=== PATIENT | female | born 1965 | race Caucasian/White ===

== ENCOUNTER 2020-12-10 01:42 | Observation (INO) | payer SELFPAY ==
[2020-12-10] VITALS (13 sets, daily range): BP systolic 85–129; BP diastolic 53–72
[~2020-12-10] VITALS: Ht 167.7 cm; Wt 57.5 kg
[~2020-12-10 01:42] MED LIST: ALPR1TAB PO; HYDR-2854 PO; MORP30CA15 PO; NF-ESOM40C PO; NITR-65 PO; PENT100C5 PO
[2020-12-10] MEDS ORDERED: LACTATED RINGERS 1,000 ML IV ONE (02:00)
[2020-12-10] MEDS ORDERED: ASPIRIN 81 MG CHEW (CHILDREN'S ASA) PO ONE (02:00)
[2020-12-10] MEDS ORDERED: LORazepam INJ 2 MG/ML (ATIVAN) VIAL IVP ONE (02:00)
[2020-12-10 02:04] LABS: BASOPHILS % (AUTO) 0 % (0-10); EOSINOPHILS % (AUTO) 0 % (0-10); HEMATOCRIT 38 % (35-52); HEMOGLOBIN 12.8 g/dL (11.5-16.0); LYMPHOCYTES # (AUTO) 1.1 10^3/uL (1.0-4.0); LYMPHOCYTES % (AUTO) 13 % (12-44); MEAN CORPUSCULAR HEMOGLOBIN 28 pg (25-34); MEAN CORPUSCULAR HGB CONC 34 g/dL (32-36); MEAN CORPUSCULAR VOLUME 83 fL (80-99); MEAN PLATELET VOLUME 10.3 fL (9.0-12.2); MONOCYTES # (AUTO) 0.4 10^3/uL (0.0-1.0); MONOCYTES % (AUTO) 5 % (0-12); NEUTROPHILS # (AUTO) 6.6 10^3/uL (1.8-7.8); NEUTROPHILS % (AUTO) 81 % (42-75); PLATELET COUNT 234 10^3/uL (130-400); WHITE BLOOD COUNT 8.2 10^3/uL (4.3-11.0)
[2020-12-10 02:11] LABS: PROTHROMBIN TIME PATIENT 13.6 SEC (12.2-14.7)
[2020-12-10 02:14] LABS: CALCIUM 9.7 MG/DL (8.5-10.1)
[2020-12-10 02:15] LABS: TOTAL PROTEIN 6.5 GM/DL (6.4-8.2)
[2020-12-10 02:17] LABS: BILIRUBIN,TOTAL 1.5 MG/DL (0.1-1.0)
[2020-12-10 02:19] LABS: CREATININE SERUM 0.7 MG/DL (0.60-1.30)
[2020-12-10 02:21] LABS: MAGNESIUM 1.7 MG/DL (1.6-2.4)
[2020-12-10 02:30] LABS: POTASSIUM 2.3 MMOL/L (3.6-5.0)
[2020-12-10] MEDS ORDERED: POTASSIUM CL 10MEQ/50ML IVPB 50 ML IV ONE (02:45)
[2020-12-10] MEDS ORDERED: NS IV 1000 ML 1,000 ML IV SCH (02:45)
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
[2020-12-10] MEDS ORDERED: morphine INJ 4 MG/ML 1 ML (VIAL/SYRINGE) IV PRN (04:00)
[2020-12-10] MEDS: POTASSIUM CL 10 MEQ/50 ML IVPB (PRE-MIX) IV SCH ×4 (04:00→07:03)
[2020-12-10] MEDS ORDERED: ONDANSETRON 4 MG/2 ML (SDV) Z0FRAN IVP PRN (04:00)
[2020-12-10] MEDS: NS IV 1000 ML 1,000 ML IV SCH ×3 (06:46→18:00)
[2020-12-10 06:49] LABS: POTASSIUM 2.7 MMOL/L (3.6-5.0)
[2020-12-10 06:51] LABS: CALCIUM 9.1 MG/DL (8.5-10.1)
[2020-12-10 06:55] LABS: CREATININE SERUM 0.57 MG/DL (0.60-1.30)
--- NOTE | 2020-12-10 07:23 | Diagnostic Imaging Report ---
INDICATION: Chest pain COMPARISON: 01/19/2010 TECHNIQUE: Single radiograph of the chest dated 12/10/2020 FINDINGS: The cardiac silhouette is within normal limits in size. No significant pulmonary vascular congestion. Calcified granuloma overlying the right midlung is again seen. The lungs are hyperinflated with background mild chronic interstitial lung changes. No significant pleural effusion. No pneumothorax. No acute osseous abnormality. IMPRESSION: Mild background chronic obstructive pulmonary disease and interstitial lung changes without superimposed acute cardiopulmonary abnormality. Dictated by: Dictated on workstation # [id number]
[2020-12-10] MEDS ORDERED: KCL 20 MEQ TAB (K-DUR) PO ONE (08:00)
[2020-12-10] MEDS: ASPIRIN E.C. 81 MG (ECOTRIN) TAB PO SCH (08:49)
[2020-12-10] MEDS ORDERED: ACETAMINOPHEN 500 MG TAB (TYLENOL) PO PRN (11:30)
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
[2020-12-10] MEDS ORDERED: PANTOPRAZOLE 40 MG (PROTONIX) TAB PO ONE (12:30)
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
[2020-12-10] MEDS ORDERED: morphine ER 30 MG (MS CONTIN) TAB PO ONE (13:30)
[2020-12-10] MEDS: ALPRAZolam 0.5 MG (XANAX) TAB PO PRN (20:07)
[2020-12-10] MEDS: morphine ER 30 MG (MS CONTIN) TAB PO SCH (20:08)
[2020-12-11 00:12] VITALS: BP 124/77
[2020-12-11] MEDS: NS IV 1000 ML 1,000 ML IV SCH ×3 (01:32→19:43)
[2020-12-11] MEDS: ALPRAZolam 0.5 MG (XANAX) TAB PO PRN (03:21)
[2020-12-11 03:39] VITALS: BP 99/67
[2020-12-11 06:31] LABS: HEMATOCRIT 33 % (35-52); HEMOGLOBIN 10.7 g/dL (11.5-16.0); MEAN CORPUSCULAR HEMOGLOBIN 28 pg (25-34); MEAN CORPUSCULAR HGB CONC 32 g/dL (32-36); MEAN CORPUSCULAR VOLUME 86 fL (80-99); MEAN PLATELET VOLUME 10.6 fL (9.0-12.2); PLATELET COUNT 165 10^3/uL (130-400); WHITE BLOOD COUNT 6.2 10^3/uL (4.3-11.0)
[2020-12-11 06:50] LABS: CALCIUM 8.2 MG/DL (8.5-10.1)
[2020-12-11 06:54] LABS: CREATININE SERUM 0.63 MG/DL (0.60-1.30)
[2020-12-11 07:54] VITALS: BP 91/56
[2020-12-11] MEDS: POTASSIUM CL 10MEQ/50ML IVPB 50 ML IV SCH (08:00)
[2020-12-11] MEDS: KCL 20 MEQ TAB (K-DUR) PO SCH (08:00)
[2020-12-11] MEDS: MAGNESIUM 1 GM/100 ML IVPB 100 ML IV SCH (08:00)
[2020-12-11] MEDS ORDERED: KCL 20 MEQ TAB (K-DUR) PO ONE ×3 (08:45→12:45)
[2020-12-11] MEDS: ASPIRIN E.C. 81 MG (ECOTRIN) TAB PO SCH (08:48)
[2020-12-11] MEDS: morphine ER 30 MG (MS CONTIN) TAB PO SCH ×2 (08:49→19:43)
[2020-12-11] MEDS: PANTOPRAZOLE 40 MG (PROTONIX) TAB PO SCH (08:49)
[2020-12-11] MEDS ORDERED: MORP-69 PO (10:23)
[2020-12-11] MEDS ORDERED: HYDR-3820 PO (10:23)
[2020-12-11] MEDS ORDERED: PROM25TA14 PO (10:23)
[2020-12-11] MEDS ORDERED: GABA-486 PO (10:23)
[2020-12-11] MEDS ORDERED: ALPR1TAB7 PO (10:23)
[2020-12-11] MEDS ORDERED: REGADENOSON 0.4 MG/5 ML SYR (LEXISCAN) IV ONE (11:15)
[2020-12-11] MEDS: ALPRAZolam 1 MG (XANAX) TAB PO PRN (11:53)
[2020-12-11 11:58] VITALS: BP 116/81
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
[2020-12-11] MEDS ORDERED: NON-FORMULARY MEDICATION 1 EA EA PO ONE (12:30)
[2020-12-11] MEDS ORDERED: TENOFOV PO NR (13:00)
[2020-12-11] MEDS ORDERED: EMTRICITABINE PO NR (13:00)
[2020-12-11 16:00] VITALS: BP 88/57
--- NOTE | 2020-12-11 17:23 | Cardiology Progress Note ---
Progress Note-Cardiology Events since last exam Date Seen by Provider: Dec 11, 2020 Time Seen by Provider: 17:22 Events since last exam I am seeing her due to chest pain. She denies any further chest pain. She denies dyspnea, palpitations, syncope, or ankle edema. Certain portions of this document may have been dictated utilizing voice recognition technology. Inherent to this technology, typographical and g rammatical errors may exist. As much as I am diligent to identify and correct these mistakes, some errors may remain in the document. Vitals Last set of Vitals Signs Vital Signs 12/11/20 12/11/20 11:58 13:55 Temp 36.5 Pulse 102 Resp 20 B/P (MAP) 116/81 (93) Pulse Ox 100 O2 Delivery Room Air Labs Labs Laboratory Tests 12/11/20 05:45 12/11/20 15:41 Exam Vital Signs Vital Signs Date Time Temp Pulse Resp B/P (MAP) Pulse Ox O2 Delivery O2 Flow Rate FiO2 12/11/20 13:55 102 12/11/20 11:58 36.5 20 116/81 (93) 100 Room Air Physical Exam General: Alert. No acute distress. Eye: No xanthelasma. HENT: Normocephalic. Neck: Jugular venous pressure does not appear elevated. Respiratory: Lungs are clear to auscultation. Respirations are non-labored. Breath sounds are equal. Symmetrical chest wall expansion. Cardiovascular: Normal rate. Regular rhythm. No murmur. No gallop. No edema. Gastrointestinal: Soft. Normal bowel sounds. Skin: Warm. Dry. Neurologic: Alert and oriented to person, place, time. Cranial nerves 3-11 grossly intact. Psychiatric: Cooperative. Appropriate mood & affect. Labs Laboratory Tests Test 12/11/20 05:45 12/11/20 15:41 Range/Units White Blood Count 6.2 4.3-11.0 10^3/uL Red Blood Count 3.86 3.80-5.11 10^6/uL Hemoglobin 10.7 L 11.5-16.0 g/dL Hematocrit 33 L 35-52 % Mean Corpuscular Volume 86 80-99 fL Mean Corpuscular Hemoglobin 28 25-34 pg Mean Corpuscular Hemoglobin Concent 32 32-36 g/dL Red Cell Distribution Width 14.4 10.0-14.5 % Platelet Count 165 130-400 10^3/uL Mean Platelet Volume 10.6 9.0-12.2 fL Sodium Level 140 135-145 MMOL/L Potassium Level 3.0 L 3.4 L 3.6-5.0 MMOL/L Chloride Level 108 H 98-107 MMOL/L Carbon Dioxide Level 26 21-32 MMOL/L Anion Gap 6 5-14 MMOL/L Blood Urea Nitrogen 6 L 7-18 MG/DL Creatinine 0.63 0.60-1.30 MG/DL Estimat Glomerular Filtration Rate 98 BUN/Creatinine Ratio 10 Glucose Level 102 70-105 MG/DL Calcium Level 8.2 L 8.5-10.1 MG/DL Magnesium Level 1.8 1.6-2.4 MG/DL Radiology Echocardiogram: Normal left ventricular chamber size, wall thickness and systol ic function with an estimated ejection fraction of 60-65%. Normal diastolic parameters and normal pulmonary artery pressure. Diagnosis/Problems Diagnosis/Problems (1) Chest pain Status: Acute Assessment & Plan: Exact etiology unclear. The symptoms are somewhat atypical in nature. She does not have any ischemic changes on her electrocardiogram. She had 2 - troponin levels. Her echocardiogram showed a normal ejection fraction without wall motion abnormalities. I suspect this is noncardiac chest discomfort, possibly related to gastroesophageal reflux disease. I recommend she continue on proton pump inhibitor. From a cardiac standpoint, she can be discharged to inpatient psychiatry when a bed is available. Since she was still here today, I did order a stress test for tomorrow but she does not want to undergo a stress test. In light of the above findings, this is not unreasonable. I left her a copy of our business card and instructed her to contact us once she is home if she continues to have chest pain. She does not necessarily need a follow-up with me unless she has ongoing chest pain. At this point time, there do not appear to be an acute, active cardiac issues. As such, cardiology will sign off. Please call if you have other questions or concerns (2) Abnormal ECG Assessment & Plan: She has borderline abnormal ECG showing sinus tachycardia with nonspecific ST changes. Her chest x-ray shows evidence of chronic obstructive pulmonary disease which I suspect is causing the low voltage in the limb leads. As above, there are no ischemic changes and she had 2 - troponin levels despite several hours of chest discomfort. Her echocardiogram did not show any regional wall motion abnormalities. As such, I do not see any urgent need to have her undergo a stress test at this point in time. (3) Mixed hyperlipidemia Assessment & Plan: She believes she has been taking rosuvastatin at home. Her lipid panel here shows excellent control. If she was in fact taking rosuvastatin at home, I recommend resuming this medication. (4) Gastroesophageal reflux disease without esophagitis Assessment & Plan: As above, I suspect this may be causing the patient's chest discomfort. I have started her on pantoprazole and when she is discharged, I recommend she go back on her Nexium which she was reportedly taking at home. (5) Cigarette smoker Assessment & Plan: She needs to work on quitting smoking. Problem Qualifiers (1) Chest pain: Chest pain type: unspecified Qualified Codes: R07.9 - Chest pain, unspecified NÉSTOR BURNETTE JR, MD Dec 11, 2020 17:23
[2020-12-11 20:00] VITALS: BP 100/62
[2020-12-12 00:32] VITALS: BP 108/59
[2020-12-12] MEDS: ALPRAZolam 1 MG (XANAX) TAB PO PRN (03:10)
[2020-12-12] MEDS: NS IV 1000 ML 1,000 ML IV SCH (03:32)
[2020-12-12 04:13] VITALS: BP 94/57
[2020-12-12 06:29] LABS: POTASSIUM 3.4 MMOL/L (3.6-5.0)
[2020-12-12] MEDS: KCL 20 MEQ TAB (K-DUR) PO SCH (06:30)
[2020-12-12] MEDS: POTASSIUM CL 10MEQ/50ML IVPB 50 ML IV SCH (06:30)
[2020-12-12 06:34] LABS: CREATININE SERUM 0.55 MG/DL (0.60-1.30)
[2020-12-12 06:37] LABS: MAGNESIUM 1.6 MG/DL (1.6-2.4)
[2020-12-12] MEDS: MAGNESIUM 1 GM/100 ML IVPB 100 ML IV SCH ×3 (07:00→09:19)
[2020-12-12 07:51] VITALS: BP 121/56
[2020-12-12] MEDS ORDERED: KCL 20 MEQ TAB (K-DUR) PO ONE (09:00)
[2020-12-12] MEDS: morphine ER 30 MG (MS CONTIN) TAB PO SCH (09:18)
[2020-12-12] MEDS: PANTOPRAZOLE 40 MG (PROTONIX) TAB PO SCH (09:18)
[2020-12-12] MEDS: ASPIRIN E.C. 81 MG (ECOTRIN) TAB PO SCH (09:18)
[2020-12-12] MEDS ORDERED: EMTR1TAB7 PO (11:20)
[2020-12-12 11:30] VITALS: BP 121/56
[2020-12-12 11:36] VITALS: BP 110/65
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
== END 2020-12-12 11:40 | disposition home or self-care (01) ==
LOC: EDUNIT# 01:42 → ER 01:44 → 4TH 02:57
PROVIDERS: ADMIT Family Medicine; ATTEND Internal Medicine
DX: R07.9 Chest pain, unspecified (principal); T76.21XA Adult sexual abuse, suspected, initial encounter; E87.8 Other disorders of electrolyte and fluid balance, not elsewhere classified; G89.29 Other chronic pain; M79.7 Fibromyalgia; E87.6 Hypokalemia; N30.10 Interstitial cystitis (chronic) without hematuria; E78.2 Mixed hyperlipidemia; K21.9 Gastro-esophageal reflux disease without esophagitis; F41.9 Anxiety disorder, unspecified; F17.210 Nicotine dependence, cigarettes, uncomplicated; Z79.891 Long term (current) use of opiate analgesic; Z79.899 Other long term (current) drug therapy; Z90.89 Acquired absence of other organs; Z90.710 Acquired absence of both cervix and uterus; Z91.5 Personal history of self-harm
CPT/HCPCS: 71045; 80048 ×3; 80053; 80061; 83735 ×3; 83874; 84132 ×2; 84443; 84484; 85025; 85027; 85610; 85730; 86703; 93005 ×3; 93041; 93306; 99284; G0479; G0480; 36415; 80307; 80320; 96374; G0378

== ENCOUNTER → 2020-12-11 | Outpatient (CLI) | payer SELFPAY ==
[~2020-12-11] MED LIST changes: +ALPR1TAB7 PO; +EMTR1TAB7 PO; +GABA-486 PO; +HYDR-3820 PO; +MORP-69 PO; +PROM25TA14 PO
== END ==
LOC: FNS 10:31
PROVIDERS: ATTEND Emergency Medicine
DX: Z02.89 Encounter for other administrative examinations (principal)

== ENCOUNTER 2021-03-22 11:38 | Emergency (ER) | payer SELFPAY ==
[~2021-03-22] VITALS: Ht 154 cm; Wt 47.7 kg
[2021-03-22] MEDS ORDERED: LACTATED RINGERS 1,000 ML IV ONE (12:15)
[2021-03-22] MEDS ORDERED: ONDANSETRON 4 MG/2 ML (SDV) Z0FRAN IVP ONE ×2 (12:15→14:00)
--- NOTE | 2021-03-22 12:15 | ED General ---
General Chief Complaint: COVID19 Suspect/Confirmed Stated Complaint: SOB,DIARRHEA,N/V,CP Source of Information: Patient History of Present Illness Date Seen by Provider: Mar 22, 2021 Time Seen by Provider: 11:52 Initial Comments PT ARRIVES VIA POV FROM HOME BEGAN HAVING SYMPTOMS 2-3 DAYS AGO C/O NAUSEA/VOMITING/DIARRHEA--HAS HAD NAUSEA X 2-3 DAYS, BEGAN HAVING DIARRHEA YESTERDAY--5-6 STOOLS; BEGAN VOMITING LAST NIGHT--EMESIS X 4, NOW DRY HEAVES C/O CHEST PAIN C/O SHORTNESS OF BREATH C/O FATIGUE C/O HEADACHE C/O BODY ACHES C/O MILD COUGH HAS HAD SUBJECTIVE FEVER AND CHILLS NO LOSS OF TASTE/SMELL NO SORE THROAT PT LIVES WITH DAUGHTER AND TWIN GRANDSONS, AND THEY HAVE BOTH BEEN ILL WITH THE SAME--GRANDSONS WERE SEEN AND TESTED NEGATIVE FOR COVID--SEEN IN ER LAST PM, BUT DOES NOT THINK THEY WERE TESTED FOR ANYTHING ELSE. PT STATES SHE HAD COVID-19 IN JUNE, NO HOSPITALIZATION OR TREATMENT PT HAS NOT HAD COVID-19 VACCINE, NOR HAS HER DAUGHTER OR GRANDSONS. PCP: DR. STACY Allergies and Home Medications Allergies Coded Allergies: cyclobenzaprine (Unverified Allergy, Unknown, 12/10/20) Uncoded Allergies: SULFA (Allergy, Unknown, 12/10/20) Patient Home Medication List Home Medication List Reviewed: Yes Alprazolam (Alprazolam) 1 Mg Tablet, 1 MG PO BID PRN for ANXIETY, (Reported) Entered as Reported by: SANDRA IBARRA on 12/11/20 1023 Emtricitabine/Tenofovir (Truvada 200 mg-300 mg Tablet) 1 Each Tablet, 1 EACH PO DAILY Prescribed by: DONNA MAHMOOD on 12/12/20 1120 Gabapentin (Gabapentin) 100 Mg Capsule, 300 MG PO TID PRN for NERVE PAIN, (Reported) Entered as Reported by: SANDRA IBARRA on 12/11/20 1023 Hydrocodone/Acetaminophen (Hydrocodone-Acetamin 10-325 mg) 1 Each Tablet, 1 EACH PO Q4- 6H PRN for PAIN-MODERATE (5-7), (Reported) Entered as Reported by: SANDRA IBARRA on 12/11/20 1023 Hyoscyamine Sulfate (Levsin-Sl) 0.125 Mg Tab.subl, 0.25 MG SL Q4H Prescribed by: GREGG HUERTA on 03/22/21 1352 L. Acidophilus/Pectin, [place] (Acidophilus Capsule) 1 Each Capsule, 2 EACH PO QID Prescribed by: GREGG HUERTA on 03/22/21 1352 Morphine Sulfate (Morphine Sulfate ER) 30 Mg Tablet.er, 30 MG PO BID, (Reported) Entered as Reported by: SANDRA IBARRA on 12/11/20 1023 Nitrofurantoin Monohyd/M-Cryst (Macrobid 100 mg Capsule) 100 Mg Capsule, 1 TAB PO BID Prescribed by: GREGG HUERTA on 03/22/21 1415 Ondansetron (Ondansetron Odt) 8 Mg Tab.rapdis, 8 MG PO Q6H Prescribed by: GREGG HUERTA on 03/22/21 1352 Promethazine HCl (Promethazine Tablet) 25 Mg Tablet, 25 MG PO Q6H PRN for NAUSEA/VOMITING-2ND LINE, (Reported) Entered as Reported by: SANDRA IBARRA on 12/11/20 1023 Promethazine HCl (Promethazine Suppository) 25 Mg Supp.rect, 25 MG RC Q6 Prescribed by: GREGG HUERTA on 03/22/21 1353 Review of Systems Review of Systems Constitutional: see HPI, chills, fever, malaise, weakness EENTM: no symptoms reported Respiratory: see HPI, cough, short of breath Cardiovascular: chest pain Gastrointestinal: see HPI; No abdominal pain; diarrhea, loss of appetite, nausea, vomiting Genitourinary: no symptoms reported Musculoskeletal: see HPI (BODY ACHES) Skin: no symptoms reported Psychiatric/Neurological: See HPI, Headache Past Qrithsp-Dqemjz-Pildxu Hx Patient Social History Tobacco Use?: Yes (1 PPD) Tobacco type used: Cigarettes Smoking Status: Current Everyday Smoker Substance use?: No Alcohol Use?: No Past Medical History Surgery/Hospitalization HX: appy, gallbladder, hysterectomy Surgeries: Yes Abdominal, Appendectomy, Gallbladder, Hysterectomy Respiratory: Yes COPD Cardiac: Yes High Cholesterol 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 oz. 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 II-XII Norm as Tested Skin: Normal Color, Warm/Dry Focused Exam Lactate Level 03/22/21 12:17: Lactic Acid Level 1.72 Lactic Acid Level Laboratory Tests Test 03/22/21 12:17 Lactic Acid Level 1.72 MMOL/L (0.50-2.00) Progress/Results/Core Measures Suspected Sepsis SIRS Temperature: Pulse: Respiratory Rate: Laboratory Tests 03/22/21 12:17: White Blood Count 15.7H Blood Pressure / Mean: 03/22/21 12:17: Lactic Acid Level 1.72 Laboratory Tests 03/22/21 12:17: Creatinine 0.70, INR Comment 1.0, Platelet Count 260, Total Bilirubin 0.6 Results/Orders Lab Results Laboratory Tests Test 03/22/21 12:17 03/22/21 13:39 Range/Units White Blood Count 15.7 H 4.3-11.0 10^3/uL Red Blood Count 5.21 H 3.80-5.11 10^6/uL Hemoglobin 15.1 11.5-16.0 g/dL Hematocrit 46 35-52 % Mean Corpuscular Volume 89 80-99 fL Mean Corpuscular Hemoglobin 29 25-34 pg Mean Corpuscular Hemoglobin Concent 33 32-36 g/dL Red Cell Distribution Width 12.3 10.0-14.5 % Platelet Count 260 130-400 10^3/uL Mean Platelet Volume 9.2 9.0-12.2 fL Immature Granulocyte % (Auto) 0 % Neutrophils (%) (Auto) 91 H 42-75 % Lymphocytes (%) (Auto) 4 L 12-44 % Monocytes (%) (Auto) 4 0-12 % Eosinophils (%) (Auto) 1 0-10 % Basophils (%) (Auto) 0 0-10 % Neutrophils # (Auto) 14.3 H 1.8-7.8 10^3/uL Lymphocytes # (Auto) 0.6 L 1.0-4.0 10^3/uL Monocytes # (Auto) 0.6 0.0-1.0 10^3/uL Eosinophils # (Auto) 0.1 0.0-0.3 10^3/uL Basophils # (Auto) 0.0 0.0-0.1 10^3/uL Immature Granulocyte # (Auto) 0.1 0.0-0.1 10^3/uL Neutrophils % (Manual) 88 % Lymphocytes % (Manual) 7 % Monocytes % (Manual) 3 % Eosinophils % (Manual) 0 % Basophils % (Manual) 0 % Band Neutrophils 2 % Blood Morphology Comment NORMAL Erythrocyte Sedimentation Rate 3 0-30 MM/HR Prothrombin Time 13.3 12.2-14.7 SEC INR Comment 1.0 0.8-1.4 Activated Partial Thromboplast Time 32 24-35 SEC D-Dimer 0.30 0.00-0.49 UG/ML Sodium Level 139 135-145 MMOL/L Potassium Level 4.3 3.6-5.0 MMOL/L Chloride Level 102 98-107 MMOL/L Carbon Dioxide Level 27 21-32 MMOL/L Anion Gap 10 5-14 MMOL/L Blood Urea Nitrogen 9 7-18 MG/DL Creatinine 0.70 0.60-1.30 MG/DL Estimat Glomerular Filtration Rate 87 BUN/Creatinine Ratio 13 Glucose Level 181 H 70-105 MG/DL Lactic Acid Level 1.72 0.50-2.00 MMOL/L Calcium Level 9.2 8.5-10.1 MG/DL Corrected Calcium 9.1 8.5-10.1 MG/DL Total Bilirubin 0.6 0.1-1.0 MG/DL Aspartate Amino Transf (AST/SGOT) 23 5-34 U/L Alanine Aminotransferase (ALT/SGPT) 20 0-55 U/L Alkaline Phosphatase 90 40-136 U/L Lactate Dehydrogenase 206 125-220 U/L C-Reactive Protein High Sensitivity 0.20 0.00-0.50 MG/DL Total Protein 6.8 6.4-8.2 GM/DL Albumin 4.1 3.2-4.5 GM/DL Procalcitonin 0.03 <0.10 NG/ML Influenza Type A (RT-PCR) Not Detected Not Detecte Influenza Type B (RT-PCR) Not Detected Not Detecte SARS-CoV-2 RNA (RT-PCR) Not Detected Not Detecte Urine Color YELLOW Urine Clarity CLEAR Urine pH 7.5 5-9 Urine Specific [place] 1.010 L 1.016-1.022 Urine Protein NEGATIVE NEGATIVE Urine Glucose (UA) NEGATIVE NEGATIVE Urine Ketones NEGATIVE NEGATIVE Urine Nitrite POSITIVE H NEGATIVE Urine Bilirubin NEGATIVE NEGATIVE Urine Urobilinogen 0.2 < = 1.0 MG/DL Urine Leukocyte Esterase NEGATIVE NEGATIVE Urine RBC (Auto) TRACE-I H NEGATIVE Urine RBC RARE /HPF Urine WBC 2-5 /HPF Urine Squamous Epithelial Cells RARE /HPF Urine Crystals NONE /LPF Urine Bacteria LARGE H /HPF Urine Casts NONE /LPF Urine Mucus NEGATIVE /LPF Urine Culture Indicated CULTURE PENDING Urine Test NEGATIVE NEGATIVE Urine Opiates Screen POSITIVE H NEGATIVE Urine Oxycodone Screen NEGATIVE NEGATIVE Urine Methadone Screen NEGATIVE NEGATIVE Urine Propoxyphene Screen NEGATIVE NEGATIVE Urine Barbiturates Screen NEGATIVE NEGATIVE Ur Tricyclic Antidepressants Screen NEGATIVE NEGATIVE Urine Phencyclidine Screen NEGATIVE NEGATIVE Urine Amphetamines Screen NEGATIVE NEGATIVE Urine Methamphetamines Screen NEGATIVE NEGATIVE Urine Benzodiazepines Screen POSITIVE H NEGATIVE Urine Cocaine Screen NEGATIVE NEGATIVE Urine Cannabinoids Screen NEGATIVE NEGATIVE My Orders Orders - GREGG HUERTA DO Cbc With Automated Diff (03/22/21 12:02) Comprehensive Metabolic Panel (03/22/21 12:02) Fibrin Degradation Products (03/22/21 12:02) Procalcitonin (Pct) (03/22/21 12:02) Hs C Reactive Protein (03/22/21 12:02) Erythrocyte Sedimentation Rate (03/22/21 12:02) LDH (03/22/21 12:02) Blood Culture (03/22/21 12:02) Chest 1 View, Ap/Pa Only (03/22/21 12:02) Hcg,Qualitative Urine (03/22/21 12:02) Ondansetron Injection (Zofran Injectio (03/22/21 12:15) Ed Iv/Invasive Line Start (03/22/21 12:02) Lactated Ringers (Lr 1000 Ml Iv Solution (03/22/21 12:15) Urinalysis (03/22/21 12:02) Urine Culture (03/22/21 12:02) Protime With Inr (03/22/21 12:02) Partial Thromboplastin Time (03/22/21 12:02) Ed Iv/Invasive Line Start (03/22/21 12:02) Vital Signs Adult Sepsis Patie Q15M (03/22/21 12:02) Remove Rings In Anticipation O (03/22/21 12:02) Lactic Acid Analyzer (03/22/21 12:02) Manual Differential (03/22/21 12:17) Ketorolac Injection (Toradol Injection) (03/22/21 13:45) Pantoprazole Injection (Protonix Injecti (03/22/21 13:45) Ondansetron Injection (Zofran Injectio (03/22/21 14:00) Drug Screen Stat (Urine) (03/22/21 13:54) Medications Given in ED Current Medications Medications Dose Ordered Sig/Viktor Route Start Time Stop Time Status Last Admin Dose Admin Ketorolac Tromethamine 30 mg ONCE ONCE IVP 03/22/21 13:45 03/22/21 13:46 DC 03/22/21 14:36 30 MG Lactated Ringer's 1,000 ml @ 0 mls/hr Q0M ONCE IV 03/22/21 12:15 03/22/21 12:16 DC 03/22/21 13:06 1,000 MLS/HR Ondansetron HCl 4 mg ONCE ONCE IVP 03/22/21 12:15 03/22/21 12:16 DC 03/22/21 13:06 4 MG Ondansetron HCl 4 mg ONCE ONCE IVP 03/22/21 14:00 03/22/21 14:01 DC 03/22/21 14:36 4 MG Pantoprazole 40 mg ONCE ONCE IV 03/22/21 13:45 03/22/21 13:46 DC 03/22/21 14:36 40 MG Vital Signs/I&O 03/22/21 03/22/21 12:00 14:49 Temp 36.8 Pulse 114 110 Resp 24 18 B/P (MAP) 161/97 (118) 127/64 Pulse Ox 99 97 O2 Delivery Room Air Room Air Capillary Refill : Progress Note : Progress Note PLACED IN ISOLATION ROOM PPE WORN AT ALL TIMES COVID-19 TESTING PERFORMED GIVEN IV FLUIDS AND ZOFRAN NO VOMITING OR DIARRHEA DURING ER STAY 1335--PT NOW WANTING SOMETHING FOR HER CHRONIC PAIN--STATES SHE THREW UP HER MORPHINE LAST NIGHT AND THIS MORNING --PT ALSO TAKES HYDROCODONE IN ADDITION TO MORPHINE. HAS BEEN PRESCRIBED PHENERGAN, BUT HAS NOT TAKEN ANY. NO FEVER NO DYSPNEA NO COUGH NO HYPOXIA Diagnostic Imaging Comments CXR--NO ACUTE PROCESS, PENDING RADIOLOGIST REPORT ( NO REPORT AT TIME OF DISMISSAL) Reviewed: Reviewed by Me Departure Impression Primary Impression: Gastroenteritis Additional Impression: UTI (urinary tract infection) Disposition: HOME, SELF-CARE Condition: Improved Departure-Patient Inst. Decision time for Depature: 13:50 Referrals: LYUBOV STACY MD (PCP/Family) Primary Care Physician Patient Instructions: [id number], Urinary Tract Infection, Adult ED Add. Discharge Instructions: CLEAR LIQUIDS--WATER, BROTH, JELLO, GATORADE TOMORROW IF YOU ARE BETTER, ADD BRATS DIET TO CLEAR LIQUIDS--BANANAS, RICE, APPLESAUCE, TOAST, SALTINES CONTINUE YOUR REGULAR MEDICATIONS PRESCRIBED FOLLOW UP WITH YOUR DR ON FRIDAY IF NO BETTER, RETURN TO ER IF WORSE All discharge instructions reviewed with patient and/or family. Voiced understanding. Scripts Nitrofurantoin Monohyd/M-Cryst (Macrobid 100 mg Capsule) 100 Mg Capsule 1 TAB PO BID, #20 CAP Prov: GREGG HUERTA DO 03/22/21 Promethazine HCl (Promethazine Suppository) 25 Mg Supp.rect 25 MG RC Q6 for Nausea/Vomiting, #10 SUPP.RECT Prov: GREGG HUERTA DO 03/22/21 Ondansetron (Ondansetron Odt) 8 Mg Tab.rapdis 8 MG PO Q6H, #20 TAB Prov: GREGG HUERTA DO 03/22/21 Hyoscyamine Sulfate (Levsin-Sl) 0.125 Mg Tab.subl 0.25 MG SL Q4H, #20 TAB Prov: TEJAS HUERTAA Boogie DO 03/22/21 L. Acidophilus/Pectin, [place] (Acidophilus Capsule) 1 Each Capsule 2 EACH PO QID, #40 CAP Prov: GREGG HUERTA DO 03/22/21 GREGG HUERTA DO Mar 22, 2021 12:15
[2021-03-22 12:24] LABS: BASOPHILS % (AUTO) 0 % (0-10); EOSINOPHILS # (AUTO) 0.1 10^3/uL (0.0-0.3); EOSINOPHILS % (AUTO) 1 % (0-10); HEMATOCRIT 46 % (35-52); HEMOGLOBIN 15.1 g/dL (11.5-16.0); LYMPHOCYTES # (AUTO) 0.6 10^3/uL (1.0-4.0); LYMPHOCYTES % (AUTO) 4 % (12-44); MEAN CORPUSCULAR HEMOGLOBIN 29 pg (25-34); MEAN CORPUSCULAR HGB CONC 33 g/dL (32-36); MEAN CORPUSCULAR VOLUME 89 fL (80-99); MEAN PLATELET VOLUME 9.2 fL (9.0-12.2); MONOCYTES # (AUTO) 0.6 10^3/uL (0.0-1.0); MONOCYTES % (AUTO) 4 % (0-12); NEUTROPHILS # (AUTO) 14.3 10^3/uL (1.8-7.8); NEUTROPHILS % (AUTO) 91 % (42-75); PLATELET COUNT 260 10^3/uL (130-400); WHITE BLOOD COUNT 15.7 10^3/uL (4.3-11.0)
[2021-03-22 12:33] LABS: ALBUMIN 4.1 GM/DL (3.2-4.5); POTASSIUM 4.3 MMOL/L (3.6-5.0)
[2021-03-22 12:34] LABS: CALCIUM 9.2 MG/DL (8.5-10.1)
[2021-03-22 12:35] LABS: TOTAL PROTEIN 6.8 GM/DL (6.4-8.2)
[2021-03-22 12:36] LABS: FIBRIN DEGRADATION PRODUCTS 0.3 UG/ML (0.00-0.49); PROTHROMBIN TIME PATIENT 13.3 SEC (12.2-14.7)
[2021-03-22 12:37] LABS: BILIRUBIN,TOTAL 0.6 MG/DL (0.1-1.0)
[2021-03-22 12:39] LABS: CREATININE SERUM 0.7 MG/DL (0.60-1.30)
[2021-03-22 12:50] LABS: BAND NEUTROPHILS 2 %; BASOPHILS % (MANUAL) 0 %; EOSINOPHILS % (MANUAL) 0 %; LYMPHOCYTES % (MANUAL) 7 %; MONOCYTES % (MANUAL) 3 %; NEUTROPHILS % (MANUAL) 88 %; RBC MORPH NORMAL
[2021-03-22 12:51] LABS: ERYTHROCYTE SEDIMENTATION RATE 3 MM/HR (0-30)
[2021-03-22 13:42] LABS: BILIRUBIN,URINE NEGATIVE (NEGATIVE); CLARITY,URINE CLEAR; COLOR,URINE YELLOW; GLUCOSE, URINE (UA) NEGATIVE (NEGATIVE); KETONES,URINE NEGATIVE (NEGATIVE); LEUKOCYTE ESTERASE ,URINE NEGATIVE (NEGATIVE); NITRITE,URINE POSITIVE (NEGATIVE); PH,URINE 7.5 (5-9); PROTEIN,URINE NEGATIVE (NEGATIVE)
[2021-03-22] MEDS ORDERED: KETOROLAC 30 MG/ML VIAL IVP ONE (13:45)
[2021-03-22] MEDS ORDERED: PANTOPRAZOLE 40 MG (PROTONIX) VIAL IV ONE (13:45)
[2021-03-22] MEDS ORDERED: ONDA8TAB13 PO (13:52)
[2021-03-22] MEDS ORDERED: HYOS0.1283 SL (13:52)
[2021-03-22] MEDS ORDERED: L. A1CAP11 PO (13:52)
[2021-03-22] MEDS ORDERED: PROM25SU44 RC (13:53)
[2021-03-22 13:57] LABS: HCG,QUALITATIVE URINE NEGATIVE (NEGATIVE)
[2021-03-22 14:08] LABS: BACTERIA,URINE LARGE /HPF; RBC,URINE RARE /HPF; SQUAMOUS EPITHELIAL CELL,UR RARE /HPF
[2021-03-22 14:10] LABS: BENZODIAZEPINES SCREEN URINE POSITIVE (NEGATIVE)
[2021-03-22 14:11] LABS: AMPHETAMINE SCREEN, URINE NEGATIVE (NEGATIVE); BARBITURATE SCREEN URINE NEGATIVE (NEGATIVE); CANNABINOID SCREEN, URINE NEGATIVE (NEGATIVE); COCAINE SCREEN URINE NEGATIVE (NEGATIVE); METHADONE STAT NEGATIVE (NEGATIVE); METHAMPHETAMINE SCREEN URINE S NEGATIVE (NEGATIVE); OPIATE SCREEN URINE POSITIVE (NEGATIVE); OXYCODONE STAT NEGATIVE (NEGATIVE); PROPOXYPHENE STAT NEGATIVE (NEGATIVE); TRICYCLIC ANTIDEPRESSANTS SCRE NEGATIVE (NEGATIVE)
[2021-03-22] MEDS ORDERED: NITR-65 PO (14:15)
[2021-03-22 14:49] VITALS: BP 127/64
--- NOTE | 2021-03-22 18:18 | Diagnostic Imaging Report ---
INDICATION: Diarrhea and weakness. FINDINGS: Benign calcified granuloma in the right lung is chronic. No focal infiltrate, failure, effusion, or pneumothorax. IMPRESSION: Stable chest. Dictated by: Dictated on workstation # [id number]
== END 2021-03-22 14:49 | disposition home or self-care (01) ==
LOC: EDUNIT# 11:38 → ER 11:39
DX: K52.9 Noninfective gastroenteritis and colitis, unspecified (principal); N39.0 Urinary tract infection, site not specified; J44.9 Chronic obstructive pulmonary disease, unspecified; F41.9 Anxiety disorder, unspecified; F32.9 Major depressive disorder, single episode, unspecified; F17.210 Nicotine dependence, cigarettes, uncomplicated; Z20.822 Contact with and (suspected) exposure to COVID-19; Z79.899 Other long term (current) drug therapy
CPT/HCPCS: 36415; 71045; 80053; 80306; 81000; 83605; 83615; 84145; 84703; 85007; 85027; 85379; 85610; 85652; 85730; 86141; 87040; 87077; 87088; 87186; 87636

== ENCOUNTER 2021-11-12 16:53 | Emergency (ER) | payer SELFPAY ==
[~2021-11-12] VITALS: Ht 165.1 cm; Wt 45.0 kg
[~2021-11-12 16:53] MED LIST changes: +HYOS0.1283 SL; +L. A1CAP11 PO; +ONDA8TAB13 PO; +PROM25SU44 RC
[2021-11-12 17:21] VITALS: BP 137/83
--- NOTE | 2021-11-12 17:40 | ED Abdominal Pain ---
General Chief Complaint: Abdominal/GI Problems Stated Complaint: ABD PAIN Nursing Triage Note: Pt states that she has been having upper abd "burning" x [address] Arguelles today but did not ask her about it. The pain worsened and she came in for evaluation. Describes the pain as burning and also has some nausea without vomiting. Source of Information: Patient Exam Limitations: No Limitations (VILMA PEARSON APRN) History of Present Illness Date Seen by Provider: Nov 12, 2021 Time Seen by Provider: 17:38 Initial Comments To ER with periumbilical abdominal pain and upper abdomen pain. This has been present for 2 to 3 days. Denies diarrhea. Saw Dr. Arguelles today but did not mention the pain. Pain became worse. She ran out of her hydrocodone yesterday. Her morphine was stopped last month as well. She ran out of her Xanax 2 days ago. Timing/Duration: 2-3 Days Severity/Quality: Moderate Location: Epigastric, Generalized Abdomen Radiation: No Radiation Activities at Onset: None Associated Symptoms: Nausea/Vomiting (VILMA PEARSON APRN) Allergies and Home Medications Allergies Coded Allergies: cyclobenzaprine (Unverified Allergy, Unknown, 12/10/20) Uncoded Allergies: SULFA (Allergy, Unknown, 12/10/20) Patient Home Medication List Home Medication List Reviewed: Yes (VILMA PEARSON APRN) Alprazolam (Alprazolam) 1 Mg Tablet, 1 MG PO BID PRN for ANXIETY, (Reported) Entered as Reported by: SANDRA IBARRA on 12/11/20 1023 Emtricitabine/Tenofovir (Truvada 200 mg-300 mg Tablet) 1 Each Tablet, 1 EACH PO DAILY Prescribed by: DONNA MAHMOOD on 12/12/20 1120 Gabapentin (Gabapentin) 100 Mg Capsule, 300 MG PO TID PRN for NERVE PAIN, (Reported) Entered as Reported by: SANDRA IBARRA on 12/11/20 1023 Hydrocodone/Acetaminophen (Hydrocodone-Acetamin 10-325 mg) 1 Each Tablet, 1 EACH PO Q4- 6H PRN for PAIN-MODERATE (5-7), (Reported) Entered as Reported by: SANDRA IBARRA on 12/11/20 1023 Hyoscyamine Sulfate (Levsin-Sl) 0.125 Mg Tab.subl, 0.25 MG SL Q4H Prescribed by: GREGG HUERTA on 03/22/21 1352 L. Acidophilus/Pectin, [place] (Acidophilus Capsule) 1 Each Capsule, 2 EACH PO QID Prescribed by: GREGG HUERTA on 03/22/21 1352 Morphine Sulfate (Morphine Sulfate ER) 30 Mg Tablet.er, 30 MG PO BID, (Reported) Entered as Reported by: SANDRA IBARRA on 12/11/20 1023 Nitrofurantoin Monohyd/M-Cryst (Macrobid 100 mg Capsule) 100 Mg Capsule, 1 TAB PO BID Prescribed by: GREGG HUERTA on 03/22/21 1415 Ondansetron (Ondansetron Odt) 8 Mg Tab.rapdis, 8 MG PO Q6H Prescribed by: GREGG HUERTA on 03/22/21 1352 Potassium Chloride (K-Tab ER) 20 Meq Tablet.er, 20 MEQ PO DAILY Prescribed by: VILMA PEARSON on 11/12/21 1950 Promethazine HCl (Promethazine Tablet) 25 Mg Tablet, 25 MG PO Q6H PRN for NAUSEA/VOMITING-2ND LINE, (Reported) Entered as Reported by: SANDRA IBARRA on 12/11/20 1023 Promethazine HCl (Promethazine Suppository) 25 Mg Supp.rect, 25 MG RC Q6 Prescribed by: GREGG HUERTA on 03/22/21 1353 Review of Systems Review of Systems Constitutional: see HPI EENTM: No Symptoms Reported Respiratory: No Symptoms Reported Cardiovascular: No Symptoms Reported Gastrointestinal: See HPI Genitourinary: No Symptoms Reported Musculoskeletal: no symptoms reported Skin: no symptoms reported Psychiatric/Neurological: No Symptoms Reported Endocrine: No Symptoms Reported Hematologic/Lymphatic: No Symptoms Reported (VILMA PEARSON APRN) Past Mijnzyo-Xwkqzl-Zdznxr Hx Patient Social History Tobacco Use?: Yes Tobacco type used: Cigarettes Smoking Status: Current Everyday Smoker Use of E-Cig and/or Vaping dev: No Substance use?: No Alcohol Use?: No Pt feels they are or have been: No (VILMA PEARSON APRN) Past Medical History Surgery/Hospitalization HX: appy, gallbladder, hysterectomy Surgeries: Yes Abdominal, Appendectomy, Gallbladder, Hysterectomy Respiratory: Yes COPD Cardiac: Yes High Cholesterol 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 oz. kg; 16.00 BMI Method:Stated General Appearance: WD/WN, no apparent distress, thin HEENT: PERRL/EOMI, normal ENT inspection Neck: non-tender, full range of motion Respiratory: no respiratory distress, no accessory muscle use Cardiovascular: regular rate, rhythm, no murmur Gastrointestinal: normal bowel sounds, soft, tenderness Extremities: normal range of motion, non-tender Neurologic/Psychiatric: alert, normal mood/affect, oriented x 3 Skin: normal color, warm/dry (VILMA PEARSON APRN) Progress/Results/Core Measures Results/Orders Lab Results Laboratory Tests Test 11/12/21 17:35 11/12/21 18:23 Range/Units Urine Color YELLOW Urine Clarity CLEAR Urine pH 6.0 5-9 Urine Specific [place] 1.020 1.016-1.022 Urine Protein NEGATIVE NEGATIVE Urine Glucose (UA) NEGATIVE NEGATIVE Urine Ketones NEGATIVE NEGATIVE Urine Nitrite NEGATIVE NEGATIVE Urine Bilirubin 1+ H NEGATIVE Urine Urobilinogen 0.2 < = 1.0 MG/DL Urine Leukocyte Esterase NEGATIVE NEGATIVE Urine RBC (Auto) NEGATIVE NEGATIVE Urine RBC NONE /HPF Urine WBC NONE /HPF Urine Squamous Epithelial Cells 0-2 /HPF Urine Crystals NONE /LPF Urine Bacteria TRACE /HPF Urine Casts NONE /LPF Urine Mucus NEGATIVE /LPF Urine Culture Indicated NO White Blood Count 8.1 4.3-11.0 10^3/uL Red Blood Count 4.56 3.80-5.11 10^6/uL Hemoglobin 13.7 11.5-16.0 g/dL Hematocrit 39 35-52 % Mean Corpuscular Volume 85 80-99 fL Mean Corpuscular Hemoglobin 30 25-34 pg Mean Corpuscular Hemoglobin Concent 35 32-36 g/dL Red Cell Distribution Width 12.3 10.0-14.5 % Platelet Count 241 130-400 10^3/uL Mean Platelet Volume 9.7 9.0-12.2 fL Immature Granulocyte % (Auto) 0 % Neutrophils (%) (Auto) 68 42-75 % Lymphocytes (%) (Auto) 25 12-44 % Monocytes (%) (Auto) 7 0-12 % Eosinophils (%) (Auto) 0 0-10 % Basophils (%) (Auto) 0 0-10 % Neutrophils # (Auto) 5.5 1.8-7.8 10^3/uL Lymphocytes # (Auto) 2.0 1.0-4.0 10^3/uL Monocytes # (Auto) 0.5 0.0-1.0 10^3/uL Eosinophils # (Auto) 0.0 0.0-0.3 10^3/uL Basophils # (Auto) 0.0 0.0-0.1 10^3/uL Immature Granulocyte # (Auto) 0.0 0.0-0.1 10^3/uL Sodium Level 135 135-145 MMOL/L Potassium Level 3.0 L 3.6-5.0 MMOL/L Chloride Level 99 98-107 MMOL/L Carbon Dioxide Level 27 21-32 MMOL/L Anion Gap 9 5-14 MMOL/L Blood Urea Nitrogen 8 7-18 MG/DL Creatinine 0.76 0.60-1.30 MG/DL Estimat Glomerular Filtration Rate 92 BUN/Creatinine Ratio 11 Glucose Level 96 70-105 MG/DL Calcium Level 9.2 8.5-10.1 MG/DL Corrected Calcium 9.0 8.5-10.1 MG/DL Total Bilirubin 1.1 H 0.1-1.0 MG/DL Aspartate Amino Transf (AST/SGOT) 26 5-34 U/L Alanine Aminotransferase (ALT/SGPT) 33 0-55 U/L Alkaline Phosphatase 70 40-136 U/L Total Protein 6.4 6.4-8.2 GM/DL Albumin 4.3 3.2-4.5 GM/DL Lipase 17 8-78 U/L (BRADLEY,GREGG K DO) Vital Signs/I&O 11/12/21 17:21 Temp 37.3 Pulse 111 Resp 19 B/P (MAP) 137/83 (101) Pulse Ox 97 O2 Delivery Room Air (BRADLEY,GREGG K DO) Blood Pressure Mean: 101 Departure Communication (Admissions) NAME: ELAN SALGADO [facility] REC#: [id number] PT STATUS: REG ER : 1965 PHYSICIAN: VILMA PEARSON APRN ADMIT DATE: 11/12/21/ER Signed Date of Exam:11/12/21 CT ABDOMEN/PELVIS WO PROCEDURE: CT abdomen and pelvis without contrast. TECHNIQUE: Multiple contiguous axial images were obtained through the abdomen and pelvis without the use of intravenous contrast. Auto Exposure Controls were utilized during the CT exam to meet ALARA standards for radiation dose reduction. INDICATION: Abdominal pain with nausea and emesis Unenhanced images of the liver and spleen reveal no focal abnormality. Gallbladder is surgically absent. There is no evidence of pancreatic or adrenal gland abnormality. Unenhanced images of the kidneys reveal no abnormality. There is high-density material within the stomach and duodenum which may be related antacid ingestion. There is no transition point seen to indicate bowel obstruction. There is no evidence of free fluid within the abdomen or pelvis. No focal inflammation or organized fluid collection is seen. Unopacified bladder is unremarkable. There is no evidence of appendiceal region inflammation. IMPRESSION: No acute abnormality is identified. Dictated by: Dictated on workstation # [id number] Dict: [id number] Trans: 11/12/211815 [facility] [id number] Interpreted by: FELIPE JENKINS MD Electronically signed by: FELIPE JENKINS MD 11/12/211815 (VILMA PEARSON APRN) Impression Primary Impression: Hypokalemia Additional Impressions: Abdominal pain Opiate withdrawal Disposition: 01 HOME, SELF-CARE Condition: Stable Departure-Patient Inst. Decision time for Depature: 19:46 (VILMA PEARSON APRN) Referrals: JORDAN ARGUELLES MD (PCP/Family) Primary Care Physician Patient Instructions: Abdominal Pain, Adult ED Add. Discharge Instructions: 1. Return to ER for any concerns. Follow-up with your doctor next week. All discharge instructions reviewed with patient and/or family. Voiced understanding. Scripts Potassium Chloride (K-Tab ER) 20 Meq Tablet.er 20 MEQ PO DAILY, #10 TAB Prov: VILMA PEARSON APRN 11/12/21 ATTENDING PHYSICIAN NOTE: I WAS PHYSICALLY PRESENT ER PHYSICIAN, BUT I WAS NOT INVOLVED IN ANY DECISION MAKING OR ANY CARE OF THIS PATIENT, AND I AM NOT COLLABORATING PHYSICIAN. (GREGG HUERTA DO) VILMA PEARSON APRN Nov 12, 2021 17:40 GREGG HUERTA DO Nov 14, 2021 05:38
[2021-11-12] MEDS ORDERED: ANTACID SUSP 30 ML UDC (MYLANTA) PO ONE (17:45)
[2021-11-12] MEDS ORDERED: HYDROcodone/APAP 5 MG/325 MG (LORTAB) TAB PO ONE (17:45)
[2021-11-12] MEDS ORDERED: LIDOCAINE 2% VISCOUS 15 ML UDC PO ONE (17:45)
[2021-11-12 18:12] LABS: CLARITY,URINE CLEAR; COLOR,URINE YELLOW; GLUCOSE, URINE (UA) NEGATIVE (NEGATIVE); KETONES,URINE NEGATIVE (NEGATIVE); LEUKOCYTE ESTERASE ,URINE NEGATIVE (NEGATIVE); NITRITE,URINE NEGATIVE (NEGATIVE); PROTEIN,URINE NEGATIVE (NEGATIVE)
--- NOTE | 2021-11-12 18:15 | Diagnostic Imaging Report ---
PROCEDURE: CT abdomen and pelvis without contrast. TECHNIQUE: Multiple contiguous axial images were obtained through the abdomen and pelvis without the use of intravenous contrast. Auto Exposure Controls were utilized during the CT exam to meet ALARA standards for radiation dose reduction. INDICATION: Abdominal pain with nausea and emesis Unenhanced images of the liver and spleen reveal no focal abnormality. Gallbladder is surgically absent. There is no evidence of pancreatic or adrenal gland abnormality. Unenhanced images of the kidneys reveal no abnormality. There is high-density material within the stomach and duodenum which may be related antacid ingestion. There is no transition point seen to indicate bowel obstruction. There is no evidence of free fluid within the abdomen or pelvis. No focal inflammation or organized fluid collection is seen. Unopacified bladder is unremarkable. There is no evidence of appendiceal region inflammation. IMPRESSION: No acute abnormality is identified. Dictated by: Dictated on workstation # [id number]
[2021-11-12 18:22] LABS: BACTERIA,URINE TRACE /HPF; BILIRUBIN,URINE 1+ (NEGATIVE); SQUAMOUS EPITHELIAL CELL,UR 0-2 /HPF
[2021-11-12 18:35] LABS: BASOPHILS % (AUTO) 0 % (0-10); EOSINOPHILS % (AUTO) 0 % (0-10); HEMATOCRIT 39 % (35-52); HEMOGLOBIN 13.7 g/dL (11.5-16.0); LYMPHOCYTES % (AUTO) 25 % (12-44); MEAN CORPUSCULAR HEMOGLOBIN 30 pg (25-34); MEAN CORPUSCULAR HGB CONC 35 g/dL (32-36); MEAN CORPUSCULAR VOLUME 85 fL (80-99); MEAN PLATELET VOLUME 9.7 fL (9.0-12.2); MONOCYTES # (AUTO) 0.5 10^3/uL (0.0-1.0); MONOCYTES % (AUTO) 7 % (0-12); NEUTROPHILS # (AUTO) 5.5 10^3/uL (1.8-7.8); NEUTROPHILS % (AUTO) 68 % (42-75); PLATELET COUNT 241 10^3/uL (130-400); WHITE BLOOD COUNT 8.1 10^3/uL (4.3-11.0)
[2021-11-12 18:43] LABS: ALBUMIN 4.3 GM/DL (3.2-4.5)
[2021-11-12 18:45] LABS: CALCIUM 9.2 MG/DL (8.5-10.1)
[2021-11-12 18:46] LABS: TOTAL PROTEIN 6.4 GM/DL (6.4-8.2)
[2021-11-12 18:48] LABS: BILIRUBIN,TOTAL 1.1 MG/DL (0.1-1.0)
[2021-11-12 18:50] LABS: CREATININE SERUM 0.76 MG/DL (0.60-1.30)
[2021-11-12] MEDS ORDERED: POTA-53 PO (19:50)
[2021-11-12] MEDS ORDERED: KCL 10 MEQ TAB (MICRO K) PO ONE (20:00)
[2021-11-12] MEDS ORDERED: DIAZEPAM 5 MG (VALIUM) TABLET PO ONE (20:00)
== END 2021-11-12 20:12 | disposition home or self-care (01) ==
LOC: EDUNIT# 16:53 → ER 16:55
DX: F11.23 Opioid dependence with withdrawal (principal); E87.6 Hypokalemia; R10.33 Periumbilical pain; R10.10 Upper abdominal pain, unspecified; F17.210 Nicotine dependence, cigarettes, uncomplicated; Z90.49 Acquired absence of other specified parts of digestive tract; Z28.310 Unvaccinated for COVID-19
CPT/HCPCS: 36415; 74176; 80053; 81000; 83690; 85025

== ENCOUNTER 2021-11-14 08:03 | Emergency (ER) | payer SELFPAY ==
[~2021-11-14] VITALS: Ht 165 cm; Wt 43.0 kg
[~2021-11-14 08:03] MED LIST changes: +POTA-53 PO
[2021-11-14] MEDS ORDERED: KETAMINE 50 MG/5 ML SYRINGE IV ONE (08:30)
[2021-11-14] MEDS ORDERED: NS IV 1000 ML 1,000 ML IV ONE (08:30)
--- NOTE | 2021-11-14 08:31 | ED General ---
General Chief Complaint: General Problems/Pain Stated Complaint: SEIZURE Nursing Triage Note: ARRIVED VIA AMB TO ROOM 06 IN AN ANXIOUS STATE. STATES SHE HAS AN APPT WITH DR ARGUELLES TOMORROW ABOUT GETTING OFF HER OPIATES AND XANAX. PT COMPLAINS OF SEVERE PAIN ET NEEDS HELP TO GET HER THRU TILL HER APPT TOMORROW. Source of Information: Patient Exam Limitations: No Limitations History of Present Illness Date Seen by Provider: Nov 14, 2021 Time Seen by Provider: 08:11 Initial Comments Here with report of severe abdominal pain and concerns for seizure this morning. States that she was in the bathroom and she was shaking with her arms and then her body. She felt like her voice was distant. She denies having anything like this before although she has described the same to her primary care provider previously. She is currently off opiates and her Xanax and is supposed to see addiction treatment services tomorrow for possible Suboxone or other therapy. She follows with Dr. Jordan Arguelles. States the burning in her stomach is quite severe. She was seen 2 days ago for the same. She is very worried about making it until tomorrow without any pain medicines Timing/Duration: 3-4 Days Severity: Moderate, Severe Associated Systoms: No Chest Pain, No Cough, No Fever/Chills, No Nausea/Vomiting; Weakness Allergies and Home Medications Allergies Coded Allergies: cyclobenzaprine (Unverified Allergy, Unknown, 12/10/20) Uncoded Allergies: SULFA (Allergy, Unknown, 12/10/20) Patient Home Medication List Home Medication List Reviewed: Yes Alprazolam (Alprazolam) 1 Mg Tablet, 1 MG PO BID PRN for ANXIETY, (Reported) Entered as Reported by: SANDRA IBARRA on 12/11/20 1023 Emtricitabine/Tenofovir (Truvada 200 mg-300 mg Tablet) 1 Each Tablet, 1 EACH PO DAILY Prescribed by: DONNA MAHMOOD on 12/12/20 1120 Gabapentin (Gabapentin) 100 Mg Capsule, 300 MG PO TID PRN for NERVE PAIN, (Reported) Entered as Reported by: SANDRA IBARRA on 12/11/20 1023 Hydrocodone/Acetaminophen (Hydrocodone-Acetamin 10-325 mg) 1 Each Tablet, 1 EACH PO Q4- 6H PRN for PAIN-MODERATE (5-7), (Reported) Entered as Reported by: SANDRA IBARRA on 12/11/20 1023 Hyoscyamine Sulfate (Levsin-Sl) 0.125 Mg Tab.subl, 0.25 MG SL Q4H Prescribed by: GREGG HUERTA on 03/22/21 1352 L. Acidophilus/Pectin, [place] (Acidophilus Capsule) 1 Each Capsule, 2 EACH PO QID Prescribed by: GREGG HUERTA on 03/22/21 1352 Morphine Sulfate (Morphine Sulfate ER) 30 Mg Tablet.er, 30 MG PO BID, (Reported) Entered as Reported by: SANDRA IBARRA on 12/11/20 1023 Nitrofurantoin Monohyd/M-Cryst (Macrobid 100 mg Capsule) 100 Mg Capsule, 1 TAB PO BID Prescribed by: GREGG HUERTA on 03/22/21 1415 Ondansetron (Ondansetron Odt) 8 Mg Tab.rapdis, 8 MG PO Q6H Prescribed by: GREGG HUERTA on 03/22/21 1352 Potassium Chloride (K-Tab ER) 20 Meq Tablet.er, 20 MEQ PO DAILY Prescribed by: VILMA PEARSON on 11/12/21 1950 Promethazine HCl (Promethazine Tablet) 25 Mg Tablet, 25 MG PO Q6H PRN for NAUSEA/VOMITING-2ND LINE, (Reported) Entered as Reported by: SANDRA IBARRA on 12/11/20 1023 Promethazine HCl (Promethazine Suppository) 25 Mg Supp.rect, 25 MG RC Q6 Prescribed by: GREGG HUERTA on 03/22/21 1353 Review of Systems Review of Systems Constitutional: see HPI; No chills, No fever EENTM: No nose congestion, No throat pain Respiratory: No cough, No short of breath Cardiovascular: No chest pain, No palpitations Gastrointestinal: abdominal pain; No nausea, No vomiting Genitourinary: no symptoms reported Musculoskeletal: back pain (Chronic); No muscle pain Psychiatric/Neurological: Anxiety, Seizure, Tingling, Tremors; Denies Weakness All Other Systems Reviewed Negative Unless Noted: Yes Past Ssmdgoj-Micpxt-Jujngi Hx Patient Social History Tobacco Use?: Yes Smoking Status: Current Everyday Smoker Substance use?: Yes Substance type: Marijuana Alcohol Use?: No Past Medical History Surgery/Hospitalization HX: appy, gallbladder, hysterectomy Surgeries: Yes Abdominal, Appendectomy, Gallbladder, Hysterectomy Respiratory: Yes COPD Cardiac: Yes High Cholesterol 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 oz. kg; 15.00 BMI Method:Stated General Appearance: No Apparent Distress, WD/WN HEENT: PERRL/EOMI, Pharynx Normal Neck: Non Tender, Supple Respiratory: Lungs Clear, Normal Breath Sounds Cardiovascular: No Murmur, Tachycardia Gastrointestinal: Normal Bowel Sounds, Soft, Tenderness (Diffuse mild) Back: Normal Inspection, No CVA Tenderness, No Vertebral Tenderness Extremity: Normal Range of Motion, Non Tender Neurologic/Psychiatric: Alert, Oriented x3, Depressed Affect Skin: Normal Color, Warm/Dry Progress/Results/Core Measures Suspected Sepsis SIRS Temperature: Pulse: 109 Respiratory Rate: 16 Laboratory Tests 11/14/21 08:30: White Blood Count 5.4 Blood Pressure 142 /103 Mean: 116 Laboratory Tests 11/14/21 08:30: Creatinine 0.73, Platelet Count 218, Total Bilirubin 0.5 Results/Orders Lab Results Laboratory Tests Test 11/14/21 08:30 Range/Units White Blood Count 5.4 4.3-11.0 10^3/uL Red Blood Count 4.72 3.80-5.11 10^6/uL Hemoglobin 14.2 11.5-16.0 g/dL Hematocrit 41 35-52 % Mean Corpuscular Volume 86 80-99 fL Mean Corpuscular Hemoglobin 30 25-34 pg Mean Corpuscular Hemoglobin Concent 35 32-36 g/dL Red Cell Distribution Width 12.6 10.0-14.5 % Platelet Count 218 130-400 10^3/uL Mean Platelet Volume 9.4 9.0-12.2 fL Immature Granulocyte % (Auto) 0 % Neutrophils (%) (Auto) 57 42-75 % Lymphocytes (%) (Auto) 32 12-44 % Monocytes (%) (Auto) 8 0-12 % Eosinophils (%) (Auto) 4 0-10 % Basophils (%) (Auto) 0 0-10 % Neutrophils # (Auto) 3.0 1.8-7.8 10^3/uL Lymphocytes # (Auto) 1.7 1.0-4.0 10^3/uL Monocytes # (Auto) 0.4 0.0-1.0 10^3/uL Eosinophils # (Auto) 0.2 0.0-0.3 10^3/uL Basophils # (Auto) 0.0 0.0-0.1 10^3/uL Immature Granulocyte # (Auto) 0.0 0.0-0.1 10^3/uL Sodium Level 137 135-145 MMOL/L Potassium Level 3.6 3.6-5.0 MMOL/L Chloride Level 102 98-107 MMOL/L Carbon Dioxide Level 25 21-32 MMOL/L Anion Gap 10 5-14 MMOL/L Blood Urea Nitrogen 10 7-18 MG/DL Creatinine 0.73 0.60-1.30 MG/DL Estimat Glomerular Filtration Rate 97 BUN/Creatinine Ratio 14 Glucose Level 117 H 70-105 MG/DL Calcium Level 9.4 8.5-10.1 MG/DL Corrected Calcium 9.2 8.5-10.1 MG/DL Total Bilirubin 0.5 0.1-1.0 MG/DL Aspartate Amino Transf (AST/SGOT) 53 H 5-34 U/L Alanine Aminotransferase (ALT/SGPT) 100 H 0-55 U/L Alkaline Phosphatase 78 40-136 U/L Total Protein 6.5 6.4-8.2 GM/DL Albumin 4.2 3.2-4.5 GM/DL Lipase 27 8-78 U/L My Orders Orders - VON MCCOY MD Cbc With Automated Diff (11/14/21 08:23) Comprehensive Metabolic Panel (11/14/21 08:23) Lipase (11/14/21 08:23) Ed Iv/Invasive Line Start (11/14/21 08:23) Ns Iv 1000 Ml (Sodium Chloride 0.9%) (11/14/21 08:30) Ketamine Syringe (Ketamine Syringe) (11/14/21 08:30) Lidocaine 2% Viscous 15 Ml (Xylocaine Vi (11/14/21 09:30) Antacid Suspension (Mylanta Suspension (11/14/21 09:30) Pantoprazole Injection (Protonix Injecti (11/14/21 09:30) Medications Given in ED Current Medications Medications Dose Ordered Sig/Viktor Route Start Time Stop Time Status Last Admin Dose Admin Al Hydrox/Mg Hydrox/Simethicone 30 ml ONCE ONCE PO 11/14/21 09:30 11/14/21 09:31 DC 11/14/21 09:48 30 ML Ketamine HCl 10 mg ONCE ONCE IV 11/14/21 08:30 11/14/21 08:31 DC 11/14/21 08:39 10 MG Lidocaine HCl 15 ml ONCE ONCE PO 11/14/21 09:30 11/14/21 09:31 DC 11/14/21 09:48 15 ML Pantoprazole 40 mg ONCE ONCE IV 11/14/21 09:30 11/14/21 09:31 DC 11/14/21 09:48 40 MG Sodium Chloride 1,000 ml @ 0 mls/hr Q0M ONCE IV 11/14/21 08:30 11/14/21 08:31 DC 11/14/21 08:39 1,000 MLS/HR Vital Signs/I&O 11/14/21 08:10 Temp 36.3 Pulse 109 Resp 16 B/P (MAP) 142/103 (116) Pulse Ox 95 O2 Delivery Room Air Capillary Refill : Less Than 3 Seconds Blood Pressure Mean: 116 Progress Note : Progress Note Seen and evaluated. IV, labs, normal saline 1 L bolus ordered. I did discuss the case with Dr. Jordan Arguelles and reviewed her history as well as follow-up. Dr. Arguelles is currently writing prescriptions that she is sending to the pharmacy now for her including narcotic prescription. She is recommending that we do not get any narcotics here. We will do ketamine 10 mg IV. Monitor patient. 0945: Patient was complaining of burning in her stomach. GI cocktail and Protonix 40 mg IV given. She is asking for more pain medicine but we are go ing to forego that as she has prescriptions that she can restart and we do not want to interfere with outpatient therapy or narcotic contracts. There is no indication of severe disease currently on her lab work-up. CT scan from 2 days ago was normal. Labs are unchanged or improved. Discharged home with return precautions. Patient verbalized understanding instructions and agreement with plan. Departure Impression Primary Impression: Abdominal pain Qualified Codes: R10.13 - Epigastric pain Additional Impression: Narcotic withdrawal Disposition: 01 HOME, SELF-CARE Condition: Stable Departure-Patient Inst. Decision time for Depature: 09:51 Referrals: JORDAN ARGUELLES MD (PCP/Family) Primary Care Physician Patient Instructions: Severe Abdominal Pain, Adult (DC), Drug Withdrawal ED Add. Discharge Instructions: All discharge instructions reviewed with patient and/or family. Voiced unde rstanding. Go to pharmacy to get your medications as prescribed by Dr. Arguelles. Keep appointment with Dr. Arguelles tomorrow as scheduled. Continue home medications as previously prescribed otherwise. Clear a light diet for the next 24 hours and then advance as tolerated. You may take [id number] Pepcid/famotidine per package directions. You may also take [id number] omeprazole per package directions. Return for worse pain, fever, vomiting, weakness, breathing problems or other concerns as needed. Copy Copies To 1: JORDAN ARGUELLES MD, TIMOTHY D MD Nov 14, 2021 08:31
[2021-11-14 08:39] LABS: BASOPHILS % (AUTO) 0 % (0-10); EOSINOPHILS # (AUTO) 0.2 10^3/uL (0.0-0.3); EOSINOPHILS % (AUTO) 4 % (0-10); HEMATOCRIT 41 % (35-52); HEMOGLOBIN 14.2 g/dL (11.5-16.0); LYMPHOCYTES # (AUTO) 1.7 10^3/uL (1.0-4.0); LYMPHOCYTES % (AUTO) 32 % (12-44); MEAN CORPUSCULAR HEMOGLOBIN 30 pg (25-34); MEAN CORPUSCULAR HGB CONC 35 g/dL (32-36); MEAN CORPUSCULAR VOLUME 86 fL (80-99); MEAN PLATELET VOLUME 9.4 fL (9.0-12.2); MONOCYTES # (AUTO) 0.4 10^3/uL (0.0-1.0); MONOCYTES % (AUTO) 8 % (0-12); NEUTROPHILS % (AUTO) 57 % (42-75); PLATELET COUNT 218 10^3/uL (130-400); WHITE BLOOD COUNT 5.4 10^3/uL (4.3-11.0)
[2021-11-14 08:52] LABS: ALBUMIN 4.2 GM/DL (3.2-4.5); POTASSIUM 3.6 MMOL/L (3.6-5.0)
[2021-11-14 08:54] LABS: CALCIUM 9.4 MG/DL (8.5-10.1)
[2021-11-14 08:55] LABS: TOTAL PROTEIN 6.5 GM/DL (6.4-8.2)
[2021-11-14 08:56] LABS: BILIRUBIN,TOTAL 0.5 MG/DL (0.1-1.0)
[2021-11-14 08:58] LABS: CREATININE SERUM 0.73 MG/DL (0.60-1.30)
[2021-11-14] MEDS ORDERED: PANTOPRAZOLE 40 MG (PROTONIX) VIAL IV ONE (09:30)
[2021-11-14] MEDS ORDERED: LIDOCAINE 2% VISCOUS 15 ML UDC PO ONE (09:30)
[2021-11-14] MEDS ORDERED: ANTACID SUSP 30 ML UDC (MYLANTA) PO ONE (09:30)
[2021-11-14 09:58] VITALS: BP 129/77
== END 2021-11-14 09:58 | disposition home or self-care (01) ==
LOC: EDUNIT# 08:03 → ER 08:04
DX: F11.23 Opioid dependence with withdrawal (principal); R10.84 Generalized abdominal pain; F17.290 Nicotine dependence, other tobacco product, uncomplicated; Z90.49 Acquired absence of other specified parts of digestive tract; Z28.310 Unvaccinated for COVID-19
CPT/HCPCS: 36415; 80053; 83690; 85025

== ENCOUNTER 2021-12-27 16:44 | Emergency (ER) | payer SELFPAY ==
[~2021-12-27] VITALS: Ht 165.1 cm; Wt 44.9 kg
--- NOTE | 2021-12-27 17:25 | ED General ---
General Chief Complaint: Chest Pain Stated Complaint: CHEST PAIN,HURTS WHILE BREATHING Nursing Triage Note: PT AMB TO RM 6 WITH COMPLAINT OF UPPER BACK PAIN THAT RADIATES AROUND TO HER LOWER CHEST. STATES WOKE UP WITH THE PAIN 4 DAYS AGO. DENIES INJURY. STATE PAIN ALSO RADIATES DOWN HER RIGHT ARM. Source of Information: Patient Exam Limitations: No Limitations History of Present Illness Date Seen by Provider: Dec 27, 2021 Time Seen by Provider: 16:58 Initial Comments Patient is a 56-year-old female who presents to the emergency room with a chief complaint of right scapular pain, right shoulder pain right-sided neck pain and right arm pain also a little right-sided chest wall pain. Patient states she woke up with this discomfort 4 days ago. She states she has been taking 800 mg of ibuprofen every 4 hours without any relief of symptoms. She is also been using moist heat on the area. She complains of a little paresthesia/numbness to her second third and fourth finger of the right hand. No weakness. She denies injury or overuse. She has had this intermittently in the past but it has never lasted this long. She denies shortness of breath. She has occasional cough. She smokes a little bit less than a pack of cigarettes daily. She has been a little bit nauseous with her ibuprofen use it sounds like. No diarrhea, difficulties with bowel or bladder. No lower extremity numbness weakness or tingling. Movement makes the pain worse as well as taking a deep breath and coughing. No significant family history of early coronary artery disease. Diabetes runs in the family. She has been on chronic pain medications in the past but recently weaned off per her family physician Dr. Sameera Guardado. She then no longer sees Dr. Guardado and is seeking a new primary care provider through [facility]. All other review of systems reviewed and negative except as stated. Timing/Duration: 4-5 Days Severity: Moderate Modifying Factors: worse with Movement Allergies and Home Medications Allergies Coded Allergies: cyclobenzaprine (Unverified Allergy, Unknown, 12/10/20) methocarbamol (Verified Allergy, Unknown, 12/27/21) Uncoded Allergies: SULFA (Allergy, Unknown, 12/10/20) Patient Home Medication List Home Medication List Reviewed: Yes Alprazolam (Alprazolam) 1 Mg Tablet, 1 MG PO BID PRN for ANXIETY, (Reported) Entered as Reported by: SANDRA IBARRA on 12/11/20 1023 Emtricitabine/Tenofovir (Truvada 200 mg-300 mg Tablet) 1 Each Tablet, 1 EACH PO DAILY Prescribed by: DONNA MAHMOOD on 12/12/20 1120 Gabapentin (Gabapentin) 100 Mg Capsule, 300 MG PO TID PRN for NERVE PAIN, (Reported) Entered as Reported by: SANDRA IBARRA on 12/11/20 1023 Hydrocodone/Acetaminophen (Hydrocodone-Acetamin 10-325 mg) 1 Each Tablet, 1 EACH PO Q4- 6H PRN for PAIN-MODERATE (5-7), (Reported) Entered as Reported by: SANDRA IBARRA on 12/11/20 1023 Hyoscyamine Sulfate (Levsin-Sl) 0.125 Mg Tab.subl, 0.25 MG SL Q4H Prescribed by: GREGG HUERTA on 03/22/21 1352 L. Acidophilus/Pectin, [place] (Acidophilus Capsule) 1 Each Capsule, 2 EACH PO QID Prescribed by: GREGG HUERTA on 03/22/21 1352 Morphine Sulfate (Morphine Sulfate ER) 30 Mg Tablet.er, 30 MG PO BID, (Reported) Entered as Reported by: SANDRA IBARRA on 12/11/20 1023 Nitrofurantoin Monohyd/M-Cryst (Macrobid 100 mg Capsule) 100 Mg Capsule, 1 TAB PO BID Prescribed by: GREGG HUERTA on 03/22/21 1415 Ondansetron (Ondansetron Odt) 8 Mg Tab.rapdis, 8 MG PO Q6H Prescribed by: GREGG HUERTA on 03/22/21 1352 Potassium Chloride (K-Tab ER) 20 Meq Tablet.er, 20 MEQ PO DAILY Prescribed by: VILMA PEARSON on 11/12/21 1950 Promethazine HCl (Promethazine Tablet) 25 Mg Tablet, 25 MG PO Q6H PRN for NAUSEA/VOMITING-2ND LINE, (Reported) Entered as Reported by: SANDRA IBARRA on 12/11/20 1023 Promethazine HCl (Promethazine Suppository) 25 Mg Supp.rect, 25 MG RC Q6 Prescribed by: GREGG HUERTA on 03/22/21 1353 Review of Systems Review of Systems Constitutional: see HPI EENTM: no symptoms reported Respiratory: cough Cardiovascular: no symptoms reported Gastrointestinal: no symptoms reported Genitourinary: no symptoms reported Musculoskeletal: muscle pain, neck pain Skin: no symptoms reported Psychiatric/Neurological: Paresthesia (Right second third and fourth) All Other Systems Reviewed Negative Unless Noted: Yes Past Trgvujb-Kvxykp-Kwmcju Hx Patient Social History Tobacco Use?: Yes Tobacco type used: Cigarettes Smoking Status: Current Everyday Smoker Substance use?: Yes Substance type: Marijuana Alcohol Use?: No Pt feels they are or have been: No Past Medical History Surgery/Hospitalization HX: appy, gallbladder, hysterectomy Surgeries: Yes Abdominal, Appendectomy, Gallbladder, Hysterectomy Respiratory: Yes COPD Cardiac: Yes High Cholesterol 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 oz. kg; 16.00 BMI Method:Stated General Appearance: No Apparent Distress, WD/WN, Thin Eyes: Bilateral Eye Normal Inspection, Bilateral Eye PERRL, Bilateral Eye EOMI HEENT: PERRL/EOMI, Pharynx Normal Neck: Full Range of Motion, Normal Inspection, Non Tender Respiratory: Lungs Clear, Normal Breath Sounds, No Accessory Muscle Use Cardiovascular: Regular Rate, Rhythm, Normal Peripheral Pulses Gastrointestinal: Non Tender, Soft Extremity: Normal Capillary Refill, Normal Inspection, Normal Range of Motion, Other (Tenderness over the right medial scapula, over the trapezius muscle at the base of the neck, over the deltoid on the superior aspect of the shoulder. No swelling. No skin discoloration. No ecchymosis. Normal range of motion of the right upper extremity. Good strength and sensation. Distal pulses are intact.) Neurologic/Psychiatric: Alert, Oriented x3, No Motor/Sensory Deficits, Normal Mood/Affect, sap basis II-XII Norm as Tested Reflexes: 2+ Bicep (R) Skin: Normal Color, Warm/Dry Comments 2+ brachioradialis right; neg rama;'s and phalens; neg tromner's (for upper motor neuron findings on the right) Progress/Results/Core Measures Suspected Sepsis SIRS Temperature: Pulse: 91 Respiratory Rate: 28 Blood Pressure 141 /91 Mean: 108 Results/Orders My Orders Orders - SONNY BETANCUR MD Ekg Tracing (12/27/21 16:57) Prednisone Tablet (Deltasone Tablet) (12/27/21 17:30) Orphenadrine Inj (Ed Only) (Norflex Inje (12/27/21 17:30) Pantoprazole Tablet (Protonix Tablet) (12/27/21 17:30) Vital Signs/I&O 12/27/21 16:51 Pulse 91 Resp 28 B/P (MAP) 141/91 (108) Pulse Ox 98 O2 Delivery Room Air Capillary Refill : Blood Pressure Mean: 108 Progress Note : Time: 17:22 Progress Note Patient tells me she is allergic to sulfa and robaxin. she neglects to mention cyclobenzaprine - which is on her list. I recommended steroids and prilosec. will give her some norflex here in the department. home with elise gordon. and follow up with [facility]. recommend OTC biofreeze and other lidocaine patches/creams. ECG Initial ECG Impression Date: Dec 27, 2021 Initial ECG Impression Time: 16:46 Initial ECG Rate: 83 Initial ECG Rhythm: Normal Sinus Initial ECG Intervals: Normal Initial ECG Impression: Normal Departure Impression Primary Impression: Muscle spasm of right shoulder Disposition: 01 HOME, SELF-CARE Condition: Improved Departure-Patient Inst. Decision time for Depature: 17:26 Referrals: [facility] [place] PHYSICIAN (PCP) Primary Care Physician Patient Instructions: Muscle Spasm ED Add. Discharge Instructions: Take the Chlorzoxazone 375mg every 8 hours as needed for muscle spasm. Also prednisone 40mg once a day for 4 days for pain. Do not take Ibuprofen while taking prednisone. You should take over the counter generic Prilosec daily to protect your stomach from excess acid after taking the high dose Ibuprofen, and also while taking the prednisone. Call [facility] for an appointment or see the walk in for further care. If you have any worsening pain, especially with loss of function, numbness, rash, fever or other emergent, concerning symptoms - please return to the ER for re-evaluation. Use over the counter Biofreeze or Lidocaine creams/patches to the sore areas - please follow packaging instructions. Scripts Chlorzoxazone (Chlorzoxazone) 375 Mg Tablet 375 MG PO TID PRN for muscle spasm, #12 TAB Prov: SONNY BETANCUR MD 12/27/21 Prednisone (Prednisone) 20 Mg Tab 40 MG PO DAILY, #8 TAB 0 Refills Prov: SONNY BETANCUR MD 12/27/21 SONNY BETANCUR MD Dec 27, 2021 17:25
[2021-12-27] MEDS ORDERED: predniSONE 20 MG TAB PO ONE (17:30)
[2021-12-27] MEDS ORDERED: PRD20T PO (17:30)
[2021-12-27] MEDS ORDERED: [UNRECOGNIZED DRUG - CODE] PO (17:30)
[2021-12-27] MEDS ORDERED: ORPHENADRINE 60 MG/2 ML (NORFLEX) AMP (ED ONLY) IM ONE (17:30)
[2021-12-27] MEDS ORDERED: PANTOPRAZOLE 20 MG TABLET (PROTONIX) PO ONE (17:30)
[2021-12-27] MEDS ORDERED: PANTOPRAZOLE 40 MG (PROTONIX) TAB PO ONE (17:33)
[2021-12-27 17:43] VITALS: BP 131/68
== END 2021-12-27 17:45 | disposition home or self-care (01) ==
LOC: EDUNIT# 16:44 → ER 16:46
DX: M62.838 Other muscle spasm (principal); F17.210 Nicotine dependence, cigarettes, uncomplicated
CPT/HCPCS: 93005